=== PATIENT | male | born 1980 | race Two or more races ===

== ENCOUNTER 2017-09-07 19:11 | Inpatient (IN) | payer SELFPAY ==
[2017-09-07 20:33] LABS: ADD MAN DIFF? NO
[2017-09-07 20:35] LABS: BASO # 0.1 x10^3/uL (0.0-0.2); BASO % 1 % (0-3); EOS # 0.1 x10^3/uL (0.0-0.7); EOS % 1 % (0-3); HEMATOCRIT 37.6 % (39.0-53.0); HEMOGLOBIN 13.3 g/dL (13.0-17.5); LYMPH # 1.5 x10^3/uL (1.0-4.8); LYMPH % 23 % (24-48); MEAN CORPUSCULAR HEMOGLOBIN 33 pg (25-35); MEAN CORPUSCULAR HGB CONC 35 g/dL (31-37); MEAN CORPUSCULAR VOLUME 92 fL (79-100); MONO # 0.4 x10^3/uL (0.0-1.1); MONO % 6 % (0-9); NEUT # 4.4 x10^3uL (1.8-7.7); NEUT % 69 % (31-73); PLATELET COUNT 274 x10^3/uL (140-400); RED BLOOD COUNT 4.08 x10^6/uL (4.30-5.70); RED CELL DISTRIBUTION WIDTH 12.8 % (11.5-14.5); WHITE BLOOD COUNT 6.5 x10^3/uL (4.0-11.0)
[2017-09-07 20:44] LABS: ANION GAP 11 (6-14); BLOOD UREA NITROGEN 15 mg/dL (8-26); BUN/CREATININE RATIO 17 (6-20); CALCIUM 7.9 mg/dL (8.5-10.1); CARBON DIOXIDE 28 mmol/L (21-32); CHLORIDE 100 mmol/L (98-107); CREATININE 0.9 mg/dL (0.7-1.3); GLUCOSE 147 mg/dL (70-99); POTASSIUM 3.4 mmol/L (3.5-5.1); SODIUM 139 mmol/L (136-145)
[2017-09-07 20:50] LABS: ALBUMIN 3.4 g/dL (3.4-5.0); ALBUMIN/GLOBULIN RATIO 0.9 (1.0-1.7); ALK PHOS 240 U/L (46-116); ALT (SGPT) 424 U/L (16-63); AST (SGOT) 227 U/L (15-37); CREATINE KINASE 615 U/L (39-308); TOTAL BILIRUBIN 0.4 mg/dL (0.2-1.0); TOTAL PROTEIN 7.4 g/dL (6.4-8.2)
[2017-09-07] MEDS: IV NORMAL SALINE 1000ML BAG 1,000 ML IV ×3 (20:53→23:16)
[2017-09-07 21:44] LABS: ACETAMIN < 2 mcg/ml (10-30)
[2017-09-07] MEDS ORDERED: ONDANSETRON PF 4 MG/2 ML VIAL. IV (21:45)
[2017-09-07] MEDS ORDERED: MORPHINE SULFATE 4 MG/ML DISP.SYRIN. IV (21:45)
[2017-09-07 21:47] LABS: PARTIAL THROMBOPLASTIN TIME 27 SEC (24-38); PROTHROMBIN TIME PATIENT 12.6 SEC (11.7-14.0)
[2017-09-07] MEDS: POTASSIUM CHLORIDE 20 MEQ TABLET.ER. PO (23:32)
[2017-09-08 04:55] LABS: ADD MAN DIFF? NO
[2017-09-08 05:06] LABS: BASO # 0.1 x10^3/uL (0.0-0.2); BASO % 1 % (0-3); EOS % 1 % (0-3); HEMATOCRIT 35.6 % (39.0-53.0); HEMOGLOBIN 12.6 g/dL (13.0-17.5); LYMPH # 1.5 x10^3/uL (1.0-4.8); LYMPH % 20 % (24-48); MEAN CORPUSCULAR HEMOGLOBIN 33 pg (25-35); MEAN CORPUSCULAR HGB CONC 35 g/dL (31-37); MEAN CORPUSCULAR VOLUME 93 fL (79-100); MONO # 0.5 x10^3/uL (0.0-1.1); MONO % 6 % (0-9); NEUT # 5.2 x10^3uL (1.8-7.7); NEUT % 72 % (31-73); PLATELET COUNT 260 x10^3/uL (140-400); RED BLOOD COUNT 3.83 x10^6/uL (4.30-5.70); RED CELL DISTRIBUTION WIDTH 12.7 % (11.5-14.5); WHITE BLOOD COUNT 7.3 x10^3/uL (4.0-11.0)
[2017-09-08 05:25] LABS: MAGNESIUM 2.1 mg/dL (1.8-2.4)
[2017-09-08 05:39] LABS: ALBUMIN/GLOBULIN RATIO 0.9 (1.0-1.7); ALK PHOS 208 U/L (46-116); ALT (SGPT) 358 U/L (16-63); ANION GAP 8 (6-14); AST (SGOT) 179 U/L (15-37); BLOOD UREA NITROGEN 9 mg/dL (8-26); BUN/CREATININE RATIO 13 (6-20); CALCIUM 7.7 mg/dL (8.5-10.1); CARBON DIOXIDE 27 mmol/L (21-32); CHLORIDE 104 mmol/L (98-107); CREATININE 0.7 mg/dL (0.7-1.3); GFR 128.3; GLUCOSE 115 mg/dL (70-99); POTASSIUM 3.6 mmol/L (3.5-5.1); SODIUM 139 mmol/L (136-145); TOTAL BILIRUBIN 0.4 mg/dL (0.2-1.0); TOTAL PROTEIN 6.5 g/dL (6.4-8.2)
[2017-09-08] MEDS: IV NORMAL SALINE 1000ML BAG 1,000 ML IV ×2 (08:02→14:36)
[2017-09-08] MEDS ORDERED: IBUPROFEN 800 MG TABLET. PO (08:15)
[2017-09-08] MEDS: IBUPROFEN 400 MG TABLET. PO (08:34)
[2017-09-08] MEDS: PANTOPRAZOLE 40 MG TABLET.DR. PO (09:13)
[2017-09-08 09:15] LABS: MONONUCLEOSIS PATIENT NEGATIVE (NEGATIVE); NEGATIVE OBC MONO NEG; POSITIVE OBC MONO POS
[2017-09-08 10:49] LABS: BARBITURATES NEG (NEG); BENZODIAZEPINES NEG (NEG); CANNABINOIDS NEG (NEG); COCAINE NEG (NEG); METHADONE NEG (NEG); OPIATES NEG (NEG); PHENCYCLIDINE NEG (NEG)
[2017-09-08 10:50] LABS: AMPHETAMINE/METHAMPHETAMINE NEG (NEG); ETHANOL, URINE NEG (NEG)
[2017-09-08 19:17] LABS: HBcIGM CONFIRMATION Negative (Negative); HCV ANTIBODY <0.1 s/co ratio (0.0-0.9); HEP A CONFIRMATION Negative (Negative); HEP B SURFACE AG Negative (Negative)
[2017-09-09 05:30] LABS: HEMATOCRIT 38.3 % (39.0-53.0); HEMOGLOBIN 13.2 g/dL (13.0-17.5); MEAN CORPUSCULAR HEMOGLOBIN 32 pg (25-35); MEAN CORPUSCULAR HGB CONC 35 g/dL (31-37); MEAN CORPUSCULAR VOLUME 92 fL (79-100); PLATELET COUNT 325 x10^3/uL (140-400); RED BLOOD COUNT 4.14 x10^6/uL (4.30-5.70); RED CELL DISTRIBUTION WIDTH 12.6 % (11.5-14.5); WHITE BLOOD COUNT 6.8 x10^3/uL (4.0-11.0)
[2017-09-09 06:15] LABS: ALBUMIN 3.1 g/dL (3.4-5.0); ALBUMIN/GLOBULIN RATIO 0.8 (1.0-1.7); ALK PHOS 198 U/L (46-116); ALT (SGPT) 330 U/L (16-63); ANION GAP 9 (6-14); AST (SGOT) 117 U/L (15-37); BLOOD UREA NITROGEN 8 mg/dL (8-26); BUN/CREATININE RATIO 13 (6-20); CALCIUM 7.7 mg/dL (8.5-10.1); CARBON DIOXIDE 25 mmol/L (21-32); CHLORIDE 103 mmol/L (98-107); CREATINE KINASE 215 U/L (39-308); CREATININE 0.6 mg/dL (0.7-1.3); GFR 153.3; GLUCOSE 116 mg/dL (70-99); POTASSIUM 3.7 mmol/L (3.5-5.1); SODIUM 137 mmol/L (136-145); TOTAL BILIRUBIN 0.4 mg/dL (0.2-1.0)
[2017-09-09] MEDS: PANTOPRAZOLE 40 MG TABLET.DR. PO (07:37)
== END 2017-09-09 16:00 | disposition home or self-care (01) | DRG 923 ==
LOC: ER 19:11 → 4 NORTH 21:33
DX: T67.5XXA Heat exhaustion, unspecified, initial encounter (principal); B34.9 Viral infection, unspecified; E86.0 Dehydration; R74.0 Nonspecific elevation of levels of transaminase and lactic acid dehydrogenase [LDH]; X30.XXXA Exposure to excessive natural heat, initial encounter; K21.9 Gastro-esophageal reflux disease without esophagitis; Z83.3 Family history of diabetes mellitus; M79.1 Myalgia; R74.8 Abnormal levels of other serum enzymes
CPT/HCPCS: 36415; 70450; 76705; 80053; 80074; 80307; 82550; 83735; 85025; 85027; 85610; 85730; 86308; 96360; 96361; 99285; 99285-25; G6039; J7030